=== PATIENT | female | born 1945 | race Caucasian/White ===

== ENCOUNTER → 2024-04-03 12:43 | Outpatient (REF) | payer MEDICARE, OTHER, SELFPAY | LOC: WDC 12:43 | PROVIDERS: ATTENDING PHYSICIAN Family Medicine | DX: Z12.31 Encounter for screening mammogram for malignant neoplasm of breast (principal) | CPT/HCPCS: 77063; 77067 ==

== ENCOUNTER → 2024-08-05 10:24 | Outpatient (REF) | payer MEDICARE, OTHER, SELFPAY ==
[2024-08-05 11:02] LABS: Hematocrit 42.1 % (37.0-47.0); Hemoglobin 13.7 g/dL (12.0-16.0)
[2024-08-05 11:30] LABS: Calcium 10.3 mg/dl (8.4-10.2)
[2024-08-05 11:43] LABS: Intact PTH 102.7 pg/ml (13.6-85.8)
[2024-08-05 11:57] LABS: Albumin 4.8 g/dl (3.5-5.0); Blood Urea Nitrogen 54 mg/dl (7-17); Carbon Dioxide 19 mmol/L (22-30); Chloride 105 mmol/L (98-107); Glucose 154 mg/dl (70-99); Phosphorus 3.7 mg/dl (2.5-4.5); Potassium 5.6 mmol/L (3.5-5.1); Sodium 140 mmol/L (135-145)
[2024-08-05 15:27] LABS: Urine Protein 6 mg/dl
[2024-08-05 15:32] LABS: Microalbumin, Random Urine 1.5 mg/dl (0.6-1.7); Microalbumin/creatinine Ratio 10.5 mg/g
== END ==
LOC: REG 10:24
PROVIDERS: ATTENDING PHYSICIAN Specialist; FAMILY PHYSICIAN Family Medicine
DX: E87.5 Hyperkalemia (principal); N18.32 Chronic kidney disease, stage 3b; N17.9 Acute kidney failure, unspecified
CPT/HCPCS: 36415; 80069; 82043; 82570; 83970; 84156; 85014; 85018

== ENCOUNTER 2025-03-27 16:29 | Inpatient (IN) | payer MEDICARE, OTHER, SELFPAY ==
[2025-03-26] VITALS (7 sets, daily range): BP systolic 137–191; BP diastolic 67–90; BMI 34.1; BMI 33.2
--- NOTE | 2025-03-26 16:40 | ED.GENMED ---
History of Present Illness
General
Chief Complaint: Fainting Sensation
Source: patient and family (Son)
Exam Limitations: none
Time Seen by Provider: 03/26/25 16:39
History of Present Illness
History of Present Illness:
79-year-old female was sitting watching TV. She had just eaten a red hot, although she eats these frequently, developed wooziness lightheadedness apparently went near unresponsive. Family noted she looked pale diaphoretic. Lasted 10 to 15
minutes. Still feels slightly off but very nonspecific. No chest pain no shortness of breath no unusual headache no history of same. Patient states her blood pressure during the episode was 145 and is actually increased since then.
Past History
Past History
ED Past Medical History: HTN, NIDDM (Diet-controlled) and Other (Breast cancer, arthritis)
ED Past Surgical History: Cholecystectomy, Gynecological (Hysterectomy, lumpectomy) and Orthopedic
Social History
Tobacco: Non-smoker
Alcohol: None
Drug: None
Personal:
Living: with family
Review of Systems
Review of Systems
All Other Systems: Not applicable
Respiratory: Denies trouble breathing
Cardiac: Denies chest pain or palpitations
ABD/GI: Reports no symptoms; Denies bloody stools or black stools
Phy Exam
Physical Exam
Physical Exam:
GENERAL: Alert and oriented in no apparent distress
EYE: Orbits normal.
NECK: Supple, no significant adenopathy.
ENT: Pharynx without erythema
CARDIAC: Regular rate and rhythm without any obvious murmurs.
LUNGS: Clear breath sounds,normal
ABDOMEN: Soft, without focal tenderness or distention
NEUROLOGICAL: Alert and oriented , grossly non-focal
SKIN: Warm and dry, no rash or lesion, no discoloration, skin intact.
MUSCULOSKELETAL: No edema,no deformity.Good color
PSYCH: Normal and appropriate interaction.
Course
Orders/Labs/Results
Orders:
Orders
03/26/25 16:08
Electrocardiogram (*1) Urgent
Reason for Study: Other
Other Reason for Exam: near syncope
EKG- Treatment ONCE
03/26/25 16:35
Complete Blood Count/With Diff Urgent
Comprehensive Metabolic Panel Urgent
03/26/25 16:55
CT Head W/o Iv Contrast Urgent
Comment:
Reason For Exam: Vomiting/change in mental status
Cardiac Monitoring- Treatment ONCE
IV Insert/Care/Rem.- Treatment PRN
0.9% Sodium Chloride 500 ml [Nss] 500 ml IV BOLUS
Abnormal Lab Results
03/26/25
16:35
RBC 3.98 L 10^6/uL
(4.20-5.40)
Hgb 11.8 L g/dL
(12.0-16.0)
Hct 36.3 L %
(37.0-47.0)
MCHC 32.5 L g/dL
(33.0-37.0)
BUN 45 H mg/dl
(7-17)
Creatinine 1.8 H mg/dL
(0.6-1.0)
Glucose 204 H mg/dl
(70-99)
03/26/25 16:35
03/26/25 16:35
Vital Signs
Initial and Last Documented VS:
Initial Vital Signs
Temp Pulse Resp BP Pulse Ox
98.0 F 63 16 175/86 98
03/26/25 16:05 03/26/25 16:05 03/26/25 16:05 03/26/25 16:05 03/26/25 16:05
Last Documented Vital Signs
Temp Pulse Resp BP Pulse Ox
98.0 F 57 16 137/67 96
03/26/25 16:05 03/26/25 18:37 03/26/25 16:05 03/26/25 18:37 03/26/25 18:37
MDM/Problems Addressed
Differential Diagnosis Includes:
Patient is clearly describing a syncopal episode. However I cannot totally put together that the blood pressure was reasonable. Maybe this was checked later into the episode when she was starting to resolve. No prodromal symptoms. May have been
vasovagal however no precipitating event to explain this. Workup in progress
*Radiology
Radiology exam reviewed: radiology read reviewed (Acute to subacute infarct left anterior superior cerebellar hemisphere)
*Pulse Oximetry
SaO2: 98
Oxygen Mode of Delivery: Room air
Patient hypoxic: no
*EKG
Interpreted by ED Provider?: Yes
Interpretation: abnormal
Comparison EKG: no changes
Heart Rate: 56
Rate: bradycardiac
Rhythm: sinus
[place]: normal axis
Interval: normal interval
QRS Pattern: normal QRS
Ischemia: no ischemia
*Critical Care Note
Total Time (30-74mins, 75-104mins- exclusive of procedures): Not Applicable
Data Reviewed
Review of Other/Old Records Reveals: Labs and Records
Update Note
Update Note:
Patient has been rechecked clinically stable and normal neurologic exam. However CT scan is concerning. Unusual syncope versus atypical CVA. Warrants inpatient management
ED Attending Note
-
Portions of this chart may have been created with voice recognition software.� Occasional wrong word or��sound alike� substitutions may have occurred due to the inherent limitations of voice recognition software.
Discharge Plan
Departure
Patient Disposition: Admit
Date of Disposition: 03/26/25
Time of Disposition: 19:05
Presentation/result/management discussed w/ accepting MD/DO: Hospitalist
Discharge Problem:
Syncope versus CVA
Prescriptions:
No Action
metoprolol succinate 50 MG tablet extended release 24 hr
50 mg PO DAILY
metformin 500 MG tablet
500 mg PO 1800
atorvastatin 10 MG tablet
10 mg PO HS
acetaminophen 500 MG tablet
1,000 mg PO QID Qty: 1 0RF
Rx Instructions:
standing order
hydrochlorothiazide 12.5 MG tablet
12.5 mg PO DAILY Qty: 1 0RF
Rx Instructions:
Hold if systolic blood pressure <130
calcium-vitamin D3-vitamin K 1 EACH tablet,chewable
3 ea PO DAILY
losartan 25 MG tablet
50 mg PO DAILY
Referrals:
UNKNOWN - PT DOES,NOT KNOW [Unknown Provider]
Interventions
Interventions:
*Risk Screen - Suicide Last Done: 03/26/25 16:05
*General Assessment Last Done: 03/26/25 16:05
*Neglect/Abuse Screening Last Done: 03/26/25 16:05
ED- Cardiac Assessment Last Done: 03/26/25 16:55
ED- Neurological Assessment Last Done: 03/26/25 16:55
Discharge Date and Time
Print Language: KHMER
[2025-03-26 16:46] LABS: Hematocrit 36.3 % (37.0-47.0); Hemoglobin 11.8 g/dL (12.0-16.0); Mean Corp Hgb Conc. 32.5 g/dL (33.0-37.0); Mean Corpuscular Volume 91.2 fL (81.0-99.0); Nucleated Red Blood Cells % 0 %; Platelet Count 274 10^3/uL (130-400); Red Cell Dist. Width 13.3 % (11.5-14.5)
[2025-03-26 17:06] LABS: ALT (SGPT) 10 U/L (0-35); AST (SGOT) 17 U/L (14-36); Albumin 4.0 g/dl (3.5-5.0); Alkaline Phosphatase 76 U/L (38-126); Blood Urea Nitrogen 45 mg/dl (7-17); Calcium 9.8 mg/dl (8.4-10.2); Carbon Dioxide 27 mmol/L (22-30); Chloride 104 mmol/L (98-107); Estimated Creatinine Clearance 28 ml/min; Glucose 204 mg/dl (70-99); Potassium 4.2 mmol/L (3.5-5.1); Sodium 135 mmol/L (135-145); Total Protein 6.8 g/dl (6.3-8.2); eGFR 27.96
[2025-03-26] MEDS: NSS 500 IV (17:48)
--- NOTE | 2025-03-26 19:09 | HPS.HSE ---
Family Physician
-
Family Physician: Gypsy Sue
Chief Complaint
-
Fainting spell
History of Present Illness
This is a 79-year-old female with past medical history significant for vyg-krurirw-llvmcyrlz diabetes, hypertension, hyperlipidemia, CKD stage IV presented to the emergency department with presyncopal episode.
Patient reported that she was sitting down eating some snacks when all of a sudden she felt dizzy. She had blurry vision. When she tried to stand up she noticed spinning sensation of vertigo. She was very nauseous and then vomited. She continued
to have some blurry vision for a while but that resolved. Family members reported that the patient was less responsive for a brief period of time. The recliner name but she did not respond for a little while and then she was able to respond
appropriately afterwards. Family member also reported that she had a slight facial asymmetry. This has resolved. Patient herself denies having any numbness or tingling. She denies any incontinence of the bladder or bowel. She denies any
weakness in her upper or lower extremities.
Patient denies having any palpitations chest pain. She had episode of vomiting about a week ago which resolved after taking 2 days of Prilosec. She also had 1 bout of diarrhea which is resolved. She denies any prior history of stroke.
In the emergency department patient was afebrile, blood pressure was 137/60 with a pulse of 57 and she was satting 96% on room air. ECG shows a sinus bradycardia rate of 56 without any interval abnormalities. No acute ST or T wave changes. CT of
the head shows a small focus of decreased density within the left anterior and superior cerebellar hemisphere suspicious for focal area of acute to subacute infarction.
CBC was unremarkable. Electrolytes were in the normal range. BUN/creatinine were 45 and 1.8 which is similar to prior with a glucose of 204. LFTs were unremarkable.
Medical History
Past Medical History
Past Medical History: Reports Cancer (Breast cancer status post lumpectomy, chemotherapy and radiation 2006), HTN, Hypercholesterolemia, NIDDM, Renal Failure (CKD stage IV) and Other (History of DVT status post Coumadin x 6 months, sleep apnea,
urinary stress incontinence, obesity)
Past Surgical History: Reports Cholecystectomy, Gynocological (Bilateral tubal ligation, total abdominal hysterectomy and bilateral salpingo-oophorectomy) and Orthopedic (Left femur fracture, right total knee arthroplasty, left total knee
arthroplasty)
Social History
Tobacco: Non-smoker
Alcohol: None
Drug: None
Family History
Family History: Not pertinent
Allergies / Home Medications
Allergies reflects when Allergies were last updated in [facility].
Home Medications with original date entered in [facility]
Allergy/Medication List:
Allergies
Allergy/AdvReac Type Severity Reaction Status Date / Time
docetaxel (From Taxotere) Allergy syncope Verified 03/26/25 16:07
and
redness
face to
waist and
pain in
hips
Home Medications
metFORMIN HCl ER 500 MG TAKE 1 TABLET BY MOUTH EVERY DAY WITH EVENING MEAL Orally Once a day for 90 days Active
Accu-Chek Claudia Plus - testing BS In Vitro Once a Day for 90 days Dx: E11.65 Jul, Active
Farxiga 5 MG 1 tablet Orally Once a day for 90 days Nov, Active
Tylenol 325 MG 2 tablets Orally Once a Day Active
Atorvastatin Calcium 10 MG TAKE 1 TABLET BY MOUTH EVERY DAY Orally Once a day for 90 days Active
Lancets Super Thin 28G - testing BS Once a Day for 90 days Dx: E11.65 Jul, Active
Accu-Chek Claudia Plus w/Device test sugar daily Once a Day for 90 days Dx: E1165 Jul, Active
Metoprolol Succinate ER 50 MG TAKE 1 TABLET BY MOUTH EVERY DAY for 90 Active
Olmesartan Medoxomil 40 MG 1 tablet Orally Once a day for 90 days Active
hydroCHLOROthiazide 12.5 MG TAKE 1 TABLET BY MOUTH EVERY DAY IN THE MORNING for 90 Active
Review of Systems
-
Constitutional: Reports No Symptoms
EENT: Reports No Symptoms
Respiratory: Reports No Symptoms
Cardiac: Reports No Symptoms
Abdomen/GI: Reports No Symptoms
: Reports No Symptoms
Musculoskeletal: Reports No Symptoms
Skin: Reports No Symptoms
Neurological: Reports No Symptoms
Endocrine: Reports No Symptoms
Hematologic/Lymphatic: Reports No Symptoms
Psych: Reports No Symptoms
Physical Exam
Vital Signs
Vital Signs
Temp Pulse Resp BP Pulse Ox
98.0 F 57 16 137/67 96
03/26/25 16:05 03/26/25 18:37 03/26/25 16:05 03/26/25 18:37 03/26/25 18:37
Physical Exam
General: Well Developed, Well Nourished and No Apparent Distress
HEENT: NormoCephalic, Moist mucous membranes and Atraumatic
Respiratory: Clear
Cardiac: S1/S2 and Regular Rhythm; No Murmur or Rub
GI: Soft, Non Tender, Non Distended and Normal Bowel Sounds; No Organomegaly
Rectal: Deferred by Provider
Musculoskeletal: No Clubbing, No Cyanosis and No Edema
Skin: No Rash
Neuro: AO x 3 and Nonfocal/grossly intact
Laboratory Results
-
03/26/25 16:35
03/26/25 16:35
Laboratory Results
Total Bilirubin 0.7 mg/dl (0.2-1.3) 03/26/25 16:35
AST 17 U/L (14-36) 03/26/25 16:35
ALT 10 U/L (0-35) 03/26/25 16:35
Alkaline Phosphatase 76 U/L (38-126) 03/26/25 16:35
Data Reviewed
-
CT Scan: Report Reviewed by me
Medical Tests (Nuc Med, Echo, EKG etc): Image Personally Visualized and interpreted
Lab Data: Labs Reviewed by me
Old Records: Reviewed
Impression/Plan
-
IMPRESSION:
79-year-old female with past medical history of hypertension, hyperlipidemia, diabetes not on insulin, GERD, CKD stage IV presenting to the emergency department with presyncopal episode, dizziness/vertigo and blurriness. She is hemodynamically
stable with a slight sinus bradycardia to 56 on metoprolol. Labs unremarkable. CT of the head does show a small focus of decreased density within the left anterior and superior cerebellar hemisphere, this is suspicious for a focal area of acute
to subacute infarction. Currently NIHSS equals 0. Hemodynamically stable.
PLAN:
TIA/CVA -patient with possible cerebral infarct
- Admit to telemetry observation
- Aspirin 324 x 1
- Continue aspirin 81 daily for now, plavix daily
- Increase dose of atorvastatin to 20 mg at bedtime
- Neurochecks
- MRI MRA and carotid vascular ultrasound
- IV fluids, orthostatic vital signs
- PT OT and speech
- Check cardiovascular panel
- Neurology consult
Type 2 diabetes
- Continue Farxiga, hold metformin
- Sliding scale insulin
Hypertension
- Continue olmesartan and hydrochlorothiazide for now
- Continue metoprolol
DVT prophylaxis�heparin subcu
CODE STATUS�full code
--- NOTE | 2025-03-26 19:30 | EDRN ---
Report received, introduced myself to patient and family. patient aware being admitted to the hospital, hospitalist was already in to speak with them. Patient walked into the restroom without difficulty and back in bed, provided patient with some
applesauce and crackers and a drink of Gingerale.
[2025-03-26] MEDS: LOW STRENGTH ASPIRIN 324 MG PO (19:43)
[2025-03-26 21:51] LABS: Glucose - Point of Care 145 mg/dl (70-99)
[2025-03-26] MEDS: NSS 1000 IV (22:55)
--- NOTE | 2025-03-26 23:40 | PTCARENOTE ---
Addendum entered by Chioma Melendez RN 03/26/25 23:41:
Approx Arrival Time to Unit: 2100
Original Note:
Pt arrived to unit AAOx3, oriented to unit, call ta in reach, bed locked, in lowest position. Pt NIH was 1 for right sided droop with smile. Pt was agreeable to unit regulations and cooperative with the admit process.
[2025-03-27] MEDS: HEPARIN 5000 UNITS SC ×4 (00:10→23:52)
[2025-03-27 04:01] VITALS: BP 136/66
--- NOTE | 2025-03-27 06:48 | W.PN.HOSP.TC ---
Today's Communication/Plan
-
follow up MRI results and neurology recommendations
Assessment / Plan
Assessment / Plan
Ms. Milka Mcguire is a 79 yo woman with hx HTN, HLD, NIDDM, GERD, CKD IV presents to the ER with a transient episode of dizziness/vertigo and blurry vision that is now resolved. CT head concerning for focal area acute/subacute infarct left
anterior and superior cerebellar hemisphere.
CT Head
IMPRESSION:
There is a small focus of decreased density within the left anterior and superior cerebellar hemisphere, this is suspicious for a focal area of acute to subacute infarction. As warranted, consider further evaluation with MRI of the brain.
PLAN:
TIA/CVA -patient with possible cerebral infarct
- Admitted to telemetry observation
- Aspirin 324 x 1
- Continue aspirin 81 daily for now, plavix daily
- Increase dose of atorvastatin
- Neurochecks
- MRI MRA and carotid vascular ultrasound - follow up results
- PT/OT - HH recommended
- Check cardiovascular panel
- Neurology consult
Type 2 diabetes
- Continue Farxiga, hold metformin
- Sliding scale insulin
Hypertension
- Continue olmesartan and hydrochlorothiazide
- Continue metoprolol
DVT prophylaxis�heparin subcu
CODE STATUS�full code
Anticipated Discharge: Within 24 hours
Subjective/Interval History
-
Date of Service: March 27, 2025
speaking normally
strength normal, feeling well
Objective Data
-
Labs:
Laboratory Results
03/27/25
06:00
WBC Pending
Hgb Pending
Hct Pending
Plt Count Pending
Sodium Pending
Potassium Pending
Chloride Pending
Carbon Dioxide Pending
BUN Pending
Creatinine Pending
Glucose Pending
Calcium Pending
Vital Signs:
Vital Signs
Temp Pulse Resp BP Pulse Ox
97.6 F 65 16 136/66 97
03/27/25 04:01 03/27/25 04:01 03/27/25 04:01 03/27/25 04:01 03/27/25 04:01
Review of Systems
-
History Source: Patient
All other systems: Reviewed and negative
Physical Exam
-
General: No Apparent Distress
HEENT: PERRLA
Respiratory: Clear to Auscultation; Negative Wheezes
Cardiac: Regular Rhythm and S1/S2
GI: Soft and Nontender
Musculoskeletal: No Edema
Skin: Warm and Dry; Negative Rash
Neuro: AO x 3
Psych: Calm
Data Reviewed
-
Diagnostic Radiology: Report Reviewed by me
Labs: Labs Reviewed by me
[2025-03-27 08:07] VITALS: BP 159/81
[2025-03-27 08:28] LABS: Glucose - Point of Care 110 mg/dl (70-99)
[2025-03-27 08:47] LABS: Hematocrit 36.2 % (37.0-47.0); Hemoglobin 11.5 g/dL (12.0-16.0); Mean Corp Hgb Conc. 31.8 g/dL (33.0-37.0); Mean Corpuscular Volume 95.0 fL (81.0-99.0); Platelet Count 263 10^3/uL (130-400); Red Cell Dist. Width 13.5 % (11.5-14.5)
[2025-03-27] MEDS: NOVOLOG FLEXPEN-LOW RESISTANCE SC ×2 (08:49→12:17)
[2025-03-27] MEDS: LOW STRENGTH ASPIRIN 81 MG PO (08:50)
[2025-03-27] MEDS: PROTONIX 40 MG PO (08:50)
[2025-03-27] MEDS: PLAVIX 75 MG PO (08:51)
[2025-03-27] MEDS: TOPROL XL 50 MG PO (08:51)
[2025-03-27] MEDS: ORETIC 12.5 MG PO (08:51)
[2025-03-27] MEDS: COZAAR 100 MG PO (08:51)
[2025-03-27] MEDS: FARXIGA 5 MG PO (08:52)
--- NOTE | 2025-03-27 09:07 | CON.NEURO4 ---
Addendum entered and electronically signed by Héctor Flores MD 03/27/25 20:37:
I have seen and examined the patient today along with the nurse practitioner Francisca Mcguire and I agree with her assessment and management plan. Given below is my addendum.
The patient is an 79 years old female who presented to the hospital on 03/26/2025 with complaint of dizziness, nausea and vomiting. She also complained of blurred vision and said that she developed spinning sensation which was followed by vomiting.
The MRI of the brain showed an acute ischemic infarct in the left cerebellar hemisphere. The MRI of the brain also showed small chronic infarcts in both occipital lobes.
The MRA of the brain showed severe stenosis (near occlusion) of the proximal left superior cerebellar artery.
The MRA of the neck showed less than 50% stenosis of both proximal ICAs.
She was not a candidate for TNK due to NIHSS = 0.
Neurologic Examination:
The patient is alert and oriented x 3,
Speech is clear,
The cranial nerves II to XII are grossly intact,
The motor strength is grossly 5/5 bilaterally,
The sensations are grossly intact,
The cerebellar examination shows ataxia on czlwht-tkdx-asftzv and tbql-ol-gofp test on the left side.
NIHSS = 2
ASSESSMENT AND PLAN:
The patient had an acute ischemic infarct in the left cerebellar hemisphere. The etiology appears likely to be secondary to emboli, the source of emboli is unspecified at this time. The patient will need a Holter monitor at the time of discharge.
She will also need an echocardiogram.
The MRI of the brain showed an acute ischemic infarct in the left cerebellar hemisphere. The MRI of the brain also showed small chronic infarcts in both occipital lobes.
She was not on any antiplatelets prior to admission.
On neurologic semination the patient has ataxia on wpedjt-aldn-xvrfni and ozyu-nf-pbxq test on the left side.
The MRA of the brain showed severe stenosis (near occlusion) of the proximal left superior cerebellar artery.
The MRA of the neck showed less than 50% stenosis of both proximal ICAs.
The plan is to keep the patient on aspirin 81 mg daily, Plavix 75 mg daily and atorvastatin 40 mg daily.
Will follow.
Original Note:
Consultation - Neurology 4
-
CONSULTING PHYSICIAN: Héctor Flores MD
REFERRING PHYSICIAN: Hospitalists/Dr. oLuie
DICTATED BY: JARET Aguilar
DATE/TIME OF REQUEST: 03/26/25
DATE/TIME OF CONSULTATION: 03/27/25
Reason for Consultation: Dizziness, near syncope
History of Present Illness:
This is an 79-year-old (left/right) handed female who has presented to the hospital on 03/26/25 with report of dizziness, nausea/vomiting, and blurred vision. Patient was in her usual state yesterday (03/26/25) sitting eating hot tamales at 1500
when suddenly she became light-headed and her vision was blurry. She went to stand up and developed a spinning sensation, became nauseous, and proceeded to vomit. Her family reports that she was minimally responsive/not speaking for a brief period
and they thought she had a slight facial droop, prompting them to bring her to the ER for evaluation. CT head was obtained on arrival and is suggestive of a possible left cerebellar ischemic stroke. She was not a candidate fro TNK/IAT due to NIHSS
0. She was loaded with aspirin in the ER. Today (03/27/25), she reports feeling back to her baseline. Her family reports that her speech still sounds mildly slurred compared to baseline. She denies any headache, dizziness, vision changes,
speech/swallowing difficulty, ataxia, numbness, and weakness. She was not taking any blood-thinning medications prior to arrival.
Past Medical History: HTN, HLD, NIDDM, CKD IV, DVT s/p Coumadin x6 months, breast cancer s/p lumpectomy/chemo/radiation, stress incontinence, obesity
Surgical History: Lumpectomy, ROSE [facility]IE BSO, b/l tubal ligation, cholecystectomy, left femur repair, b/l TKR
Family History: Reviewed and noncontributory.
Social History: Denies tobacco, alcohol, and illciit drug use.
Allergies: Docetaxel.
Home Medications: See below.
Review of Symptoms:
Patient denies any fever, headache, chest pain, shortness of breath, GI or symptoms.
�Per the HPI.�All systems are reviewed negative except above.
Physical Exam:
The patient is afebrile, abdomen is nondistended, breathing is unlabored, skin is warm and dry, no edema.
NIH Stroke Scale:
I performed the NIH stroke scale on the patient on 03/27/25 at 1400. The patient scored 3 points on the NIH stroke scale assessment, which were assigned as follows: See below.
Neurologic Examination:
The patient is awake, alert and oriented x 3. She is able to follow commands and answer questions appropriately. There is no aphasia. There is very mild dysarthria. On cranial nerve assessment, pupils are 3 mm bilateral, round and reactive to light
and accommodation. Visual roberson are full. Extraocular movements are intact. Facial sensations are intact and bilaterally symmetrical, there is no facial asymmetry. Hearing is intact bilaterally to normal conversation volume. Tongue palate and uvula
are midline. Sternocleidomastoid strengths are full bilaterally. Motor strengths are 5/5 bilateral upper and lower extremities on medical research [place] scale. There is no drift or involuntary movement noted. Deep tendon reflexes are 2+ bilateral
upper and lower extremities and Babinski is absent bilaterally. There was no extinction noted on double simultaneous stimulation. Coordination is very minimally ataxic by finger to nose and heel to vale on the left side.
Lab Results: See below.
Neuro Imaging:
1. CT head 03/26/25: There is a small focus of decreased density within the left anterior and superior cerebellar hemisphere, this is suspicious for a focal area of acute to subacute infarction. As warranted, consider further evaluation with MRI of
the brain.
2. MRI brain 03/27/25: 1.7 cm ACUTE ISCHEMIC INFARCT in the superomedial anterior LEFT CEREBELLAR HEMISPHERE. Small chronic transcortical infarcts in both occipital lobes. Mild white matter leukoaraiosis in the frontal lobes. Mild diffuse cerebral
and cerebellar volume loss. Severe left-sided facet joint arthrosis in the cervical spine.
3. MRA head/neck 03/27/25: SEVERE STENOSIS (near occlusion) of the PROXIMAL LEFT SUPERIOR CEREBELLAR ARTERY which demonstrates asymmetric decreased blood flow in the territory of the 1.8 cm acute ischemic infarct in the superomedial anterior left
cerebellar hemisphere. Severe calcific atherosclerotic plaque in both intracranial internal carotid arteries. 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
Differentials for the patient's presentation include:
1. Acute left cerebellar ischemic infarct in the setting of left superior cerebellar artery near occlusion; etiology of stroke is likely an embolic source vs less likely hypertension.
2. Chronic small bilateral occipital lobe ischemic infarcts.
Patient has the following risk factors for their symptoms: HTN, HLD, NIDDM, age
IV Tenecteplase/IAT candidacy: She was not a candidate fro TNK/IAT due to NIHSS 0.
Recommendations:
-Continue DAPT with aspirin 81mg and clopidogrel 75mg daily for 21 days. After 21 days, stop clopidogrel and continue aspirin 81mg daily only.
-Permissive hypertension SBP<220, DBP<120 until 1500 today, then goal normotension.
-TTE pending.
-Recommend 30 day Holter monitor, if this is normal would proceed with ILR placement.
-LDL goal <70. LDL is 69. Okay to continue home atorvastatin 10mg daily as LDL is at goal.
-Goal normoglycemia, hbA1c is 7.2.
-NIHSS and neurological checks per unit guidelines.
-Provide patient with a stroke education packet.
-PT/OT/ST evaluations.
-Vitamin B12 level is low at 305, goal is >400. Initiate cyanocobalamin 1000mcg PO daily
-DVT prophylaxis.
Discussed patient care with: Dr. Flores, the patient
Vital Signs and Labs
-
Vital Signs and Labs:
Vital Signs
Temp Pulse Resp BP Pulse Ox
97.6 F 61 12 159/81 97
03/27/25 08:07 03/27/25 08:51 03/27/25 08:07 03/27/25 08:51 03/27/25 08:07
Lab Results
03/27/25 07:57
Sodium 135 mmol/L (135-145) 03/26/25 16:35
Potassium 4.2 mmol/L (3.5-5.1) 03/26/25 16:35
BUN 45 mg/dl (7-17) H 03/26/25 16:35
Glucose 204 mg/dl (70-99) H 03/26/25 16:35
Calcium 9.8 mg/dl (8.4-10.2) 03/26/25 16:35
Medications
-
Active Medications
Generic Name Dose Route Start Last Admin
Trade Name Freq PRN Reason Stop Dose Admin
Acetaminophen 650 mg 03/26/25 21:26
Acetaminophen 650 Mg Rectal Suppository RECTAL 04/23/25 21:25
Q4HPRN PRN
MEYERS, mild pain, or temp >100.4F
Aspirin 81 mg 03/27/25 08:00 03/27/25 08:50
Aspirin 81 Mg Chewable Tablet PO 04/24/25 07:59 81 mg
DAILY TOM Administration
Atorvastatin Calcium 20 mg 03/27/25 18:00
Atorvastatin (Lipitor) 20 Mg Tablet PO 04/24/25 17:59
QPM TOM
Clopidogrel Bisulfate 75 mg 03/27/25 08:00 03/27/25 08:51
Clopidogrel 75 Mg Tablet PO 04/24/25 07:59 75 mg
DAILY TOM Administration
Dapagliflozin 5 mg 03/27/25 08:00 03/27/25 08:52
Dapagliflozin (Farxiga) 5 Mg Tablet PO 04/24/25 07:59 5 mg
DAILY TOM Administration
Dextrose 12.5 grams 03/26/25 21:26
Dextrose 50% (0.5 Grams/Ml) 50 Ml Syringe IV 04/23/25 21:25
[id number] PRN
hypoglycemia
Protocol
Glucagon 1 mg 03/26/25 21:26
Glucagon 1 Mg Vial IM 04/23/25 21:25
PRN PRN
hypoglycemia
Protocol
Heparin Sodium 5,000 units 03/27/25 00:00 03/27/25 08:51
Heparin 5,000 Units/Ml 1 Ml Vial SC 04/24/25 00:00 5,000 units
Q8 TOM Administration
Hydrochlorothiazide 12.5 mg 03/27/25 08:00 03/27/25 08:51
Hydrochlorothiazide 12.5 Mg Tablet PO 04/24/25 07:59 12.5 mg
DAILY TOM Administration
Sodium Chloride 1,000 mls @ 80 mls/hr 03/26/25 21:26 03/26/25 22:55
Nss IV 03/27/25 09:55 1,000 mls
.[id number] TOM Administration
Insulin Aspart 0 units 03/27/25 07:30 03/27/25 08:49
Insulin Aspart Low Resistance 300 Units/3 Ml Pen.Injctr SC 04/24/25 07:29 Not Given
AC TOM
Protocol
Losartan Potassium 100 mg 03/27/25 08:00 03/27/25 08:51
Losartan 100 Mg Tablet PO 04/24/25 07:59 100 mg
DAILY TOM Administration
Metoprolol Succinate 50 mg 03/27/25 08:00 03/27/25 08:51
Metoprolol 50 Mg Extended Release Tablet PO 04/24/25 07:59 50 mg
DAILY TOM Administration
Pantoprazole Sodium 40 mg 03/27/25 08:00 03/27/25 08:50
Pantoprazole 40 Mg Delayed Release Tablet PO 04/24/25 07:59 40 mg
DAILY TOM Administration
Sodium Chloride 0 flush 03/26/25 22:00
Sodium Chloride 0.9% (Flush) Syringe IV 04/23/25 21:59
PER PROTOCOL TOM
Home Medications
�Medication �Instructions �Recorded
metoprolol succinate 50 mg 50 mg PO DAILY Heart 06/01/15
tablet,extended release 24 hr Disease/Condition
atorvastatin 10 mg tablet 10 mg PO HS High Cholesterol 06/12/19
acetaminophen 500 mg tablet 1,000 mg PO DAILY MILD PAIN 03/26/25
calcium carbonate 500 mg PO DAILY Supplement 03/26/25
dapagliflozin propanediol 5 mg 5 mg PO DAILY Diabetes 03/26/25
tablet (Farxiga)
hydrochlorothiazide 12.5 mg tablet 12.5 mg PO DAILY Fluid 03/26/25
Retention/Swelling
losartan 50 mg tablet 50 mg PO BID Blood Pressure 03/26/25
metformin 500 mg tablet,extended 500 mg PO QPM Diabetes 03/26/25
release 24 hr
olmesartan 40 mg tablet (Benicar) 40 mg PO DAILY Heart 03/26/25
Disease/Condition
omeprazole 20 mg tablet,delayed 20 mg PO DAILY Gastrointestinal 03/26/25
release Issue
NIH Stroke Score
Subsequent NIH Scale
Date of Subsequent NIH Scale: 03/27/25
Time of Subsequent NIH Scale: 14:00
NIH Stroke Score
Level of Consciousness: 0 - Alert
LOC Questions: 0-Answers both correctly
LOC Commands: 0-Performs both correctly
Best Horizontal Gaze: 0-Normal
Visual [place]: 0=Normal, no visual loss
Facial Palsy: 0=Normal, symmetrical
Motor - Right Arm: 0=No drift 10 seconds
Motor - Left Arm: 0=No drift 10 seconds
Motor - Right Le-No drift 5 seconds
Motor - Left Le-No drift 5 seconds
Limb Ataxia: 2-Present in two limbs
Sensation: 0-Normal
Best Language: 0-No aphasia
Dysarthria: 1-Mild slurring
Extinction and Inattention: 0-No abnormality
NIH Total Score:: 3
Modified Desha (mRS) Score
Modified Hernan Scale (mRS): No significant disability. Able to carry out usual activities.
Score: 1
Alteplase Contraindication
Inclusion and Exclusion criteria reviewed: Yes
IAT Contraindications: NIHSS < 6 and Imaging doesn't show large vessel occlusion as cause of stroke
[2025-03-27 09:21] LABS: Blood Urea Nitrogen 34 mg/dl (7-17); Calcium 9.5 mg/dl (8.4-10.2); Carbon Dioxide 22 mmol/L (22-30); Chloride 108 mmol/L (98-107); Estimated Creatinine Clearance 35 ml/min; Glucose 118 mg/dl (70-99); HDL Cholesterol 41 mg/dl; LDL Cholesterol, Calculated 69 mg/dl; Potassium 4.0 mmol/L (3.5-5.1); Sodium 136 mmol/L (135-145); Very Low Density Lipoprotein 41 mg/dl (0-30); eGFR 37.80
[2025-03-27 10:06] LABS: Glycohemoglobin (HgbA1c) 7.2 % (4.0-5.9)
[2025-03-27 11:05] LABS: Ferritin 162.0 ng/ml (11.1-264.0)
--- NOTE | 2025-03-27 11:05 | PTOTSP ---
Speech Therapy Evaluation:
Pt presents w/ acute (TIA/CVA symptoms, 03/[address] indicating cerebellar infarcts) and chronic (HODA) risk factors for dysphagia. However, no overt s/sx of aspiration, no reports of difficulty w/ P.O. intake, WBC WNL, and pt is on room air. It is
recommended that pt is placed on Regulars, Thins diet w/ ST to monitor for diet-level tolerance and determine if further instrumental swallow study warranted to objectively rule-out aspiration.
Pt reports she drives, is responsible for finances/meals/medications, and is caregiver for at baseline. [place] Cognitive Assessment Version 8.2 (MOCA) administered to further assess cognitive domains. Pt's score of 19/30 indicates a mild
cognitive impairment, with noted deficits in attention and delayed recall. Pt reports cognition is at baseline. It is recommended that ST follows for further cognitive-linguistic assessment/treatment at acute and next level of care.
Recommendations:
1. Regulars, Thins
2. Medications as best tolerated
3. Partial supervision/assistance w/ meals
4. Strategies: Single sips/small bites, alternating sips and bites
5. F/U w/ ST to observe diet level tolerance, determine if instrumental swallow study warranted, and further treat/assess cognition/language at acute and next level of care.
[2025-03-27 11:37] LABS: Folate 6.3 ng/ml (2.76-20); Vitamin B12 305 pg/ml (239-931)
--- NOTE | 2025-03-27 11:46 | PTOTSP ---
Speech Therapy Evaluation:
Pt presents w/ acute (TIA/CVA symptoms, 03/[address] indicating cerebellar infarcts) and chronic (HODA) risk factors for dysphagia. However, no overt s/sx of aspiration, no reports of difficulty w/ P.O. intake, WBC WNL, and pt is on room air. It is
recommended that pt is placed on Regulars, Thins diet w/ ST to monitor for diet-level tolerance and determine if further instrumental swallow study warranted to objectively rule-out aspiration.
Pt reports she drives, is responsible for finances/meals/medications, and is caregiver for at baseline. [place] Cognitive Assessment Version 8.2 (MOCA) administered to further assess cognitive domains. Pt's score of 20/30 concerning for a
moderate cognitive impairment, with noted deficits in attention and delayed recall. Pt reports cognition is at baseline. It is recommended that ST follows for further cognitive-linguistic assessment/treatment at acute and next level of care.
Recommendations:
1. Regulars, Thins
2. Medications as best tolerated
3. Partial supervision/assistance w/ meals
4. Strategies: Single sips/small bites, alternating sips and bites
5. F/U w/ ST to observe diet level tolerance, determine if instrumental swallow study warranted, and further treat/assess cognition/language at acute and next level of care.
[2025-03-27 11:59] VITALS: BP 154/70
[2025-03-27 12:13] LABS: Glucose - Point of Care 114 mg/dl (70-99)
[2025-03-27] MEDS: VITAMIN B-12 1000 MCG PO (12:38)
[2025-03-27 15:30] VITALS: BP 144/70
[2025-03-27 16:22] LABS: Glucose - Point of Care 184 mg/dl (70-99)
--- NOTE | 2025-03-27 16:24 | CM ---
Patient seen bedside w/ family, initial assessment completed. Patient is a 79-year-old female with past medical history significant for mxj-icaxwdf-cepfacwtu diabetes, hypertension, hyperlipidemia, CKD stage IV presented to the emergency department
with presyncopal episode.
Patient resides in an in law suite w/ spouse attached to son's home, no steps. Patient was prev independent w/ ambulation, patient has cane that she was not using, however, family stated she will be using it moving forward. Patient is independent w/
ADLs and personal care. Patient has additional DME in the home for spouse who has dementia. Denies SNF/HC hx. Spouse currently active w/ [facility], patient would like a referral to [facility] for herself if home care is needed.
PCP: Gypsy Sue
Pharmacy: [facility]
Patient admitted obs services. SHEPHERD form verbally reviewed, copy provided, copy on chart
Therapy recommending home PT, speech recommending skilled services
Plan: Home w/ [facility]
[2025-03-27] MEDS: NOVOLOG FLEXPEN-LOW RESISTANCE 1 UNITS SC (17:18)
[2025-03-27] MEDS: LIPITOR 20 MG PO (17:19)
[2025-03-27 19:00] VITALS: BP 150/75; BP 159/66; BP 168/69; PULSE 65; PULSE 67; PULSE 74
[2025-03-27 21:01] LABS: Glucose - Point of Care 181 mg/dl (70-99)
[2025-03-27 23:00] VITALS: BP 144/77
[2025-03-28 03:00] VITALS: BP 150/74
--- NOTE | 2025-03-28 06:08 | W.PN.HOSP.TC ---
Addendum entered and electronically signed by Sarahi Silverman MD 03/28/25 16:41:
Correction, ok to continue with Farxiga for chronic kidney disease.
Original Note:
Today's Communication/Plan
-
Discharge
Assessment / Plan
Assessment / Plan
Physical exam
General: No Apparent Distress, appears comfortable at this time
HEENT: PERRLA, no facial droop
Respiratory: Clear to Auscultation; Negative Wheezes
Cardiac: Regular Rhythm and S1/S2
GI: Soft and Nontender
Musculoskeletal: No Edema
Skin: Warm and Dry; Negative Rash
Neuro: AO x 3, conversant coherent
Psych: Calm
Ms. Milka Mcguire is a 79 yo woman with hx HTN, HLD, NIDDM, GERD, CKD IV presents to the ER with a transient episode of dizziness/vertigo and blurry vision that is now resolved. CT head concerning for focal area acute/subacute infarct left
anterior and superior cerebellar hemisphere.
CT Head
IMPRESSION:
There is a small focus of decreased density within the left anterior and superior cerebellar hemisphere, this is suspicious for a focal area of acute to subacute infarction. As warranted, consider further evaluation with MRI of the brain.
PLAN:
TIA/CVA -patient with possible cerebral infarct
- Admitted to telemetry observation
- DAPT ASA Plavix 21 days then asa alone
- cardiovascular panel appreciated
- Increase dose of atorvastatin
- Neurochecks
- MRI MRA and carotid vascular ultrasound results appreciated
- PT/OT - HH recommended
- Neurology consult appreciated stroke suspected embolic, patient fitted with Holter Monitor
- ECHO appreciated EF 62%, mild moderate mitral valve regurgitation, moderate tricuspid regurgitation.
Low Normal B12 level
-B12 supplementation as per Neurology
Type 2 diabetes
- A1c 7.2
- Sliding scale insulin
- Ok to resume home Metformin on discharge
- Farxiga placed on hold due to eGFR<45
Chronic Kidney Disease Stage III to IV
Cr baseline appears to be 1.4 to 1.5
renally dose medications as necessary
Hypertension
- Continue Losartan and hydrochlorothiazide
- Continue metoprolol
DVT prophylaxis�heparin subcu
CODE STATUS�full code
Medically stable for discharge with home services and outpatient follow up recommendations.
Discussed with patient, patient's son Tanner and daughter Elke.
Total Time Preparing Discharge __40 minutes including examination of the patient, summary of the hospital stay, instructions for continuing care to all relevant caregivers; and preparation of discharge records, prescriptions, and referral
forms if necessary.
Anticipated Discharge: Today
Subjective/Interval History
-
Date of Service: March 28, 2025
No acute distress, overall reports feeling well, denies new acute issues at this time. Eager to go home.
Objective Data
-
Labs:
Laboratory Results
03/28/25
06:00
Sodium Pending
Potassium Pending
Chloride Pending
Carbon Dioxide Pending
BUN Pending
Creatinine Pending
Glucose Pending
Calcium Pending
Vital Signs:
Vital Signs
Temp Pulse Resp BP Pulse Ox
97.7 F 63 16 150/74 98
03/28/25 03:00 03/28/25 03:00 03/28/25 03:00 03/28/25 03:00 03/28/25 03:00
I&O
03/26/25 03/27/25 03/28/25
06:59 06:59 06:59
Intake Total 480 / 480
Balance 480 / 480
[2025-03-28 07:38] LABS: Glucose - Point of Care 124 mg/dl (70-99)
[2025-03-28 07:55] VITALS: BP 143/69
[2025-03-28] MEDS: NOVOLOG FLEXPEN-LOW RESISTANCE SC ×2 (08:12→16:06)
[2025-03-28] MEDS: PLAVIX 75 MG PO (08:13)
[2025-03-28] MEDS: LOW STRENGTH ASPIRIN 81 MG PO (08:13)
[2025-03-28] MEDS: TOPROL XL 50 MG PO (08:13)
[2025-03-28] MEDS: FARXIGA 5 MG PO (08:14)
[2025-03-28] MEDS: VITAMIN B-12 1000 MCG PO (08:14)
[2025-03-28] MEDS: PROTONIX 40 MG PO (08:14)
[2025-03-28] MEDS: ORETIC 12.5 MG PO (08:14)
[2025-03-28] MEDS: HEPARIN 5000 UNITS SC ×2 (08:15→16:06)
[2025-03-28] MEDS: COZAAR 100 MG PO (08:15)
[2025-03-28 09:36] LABS: Blood Urea Nitrogen 34 mg/dl (7-17); Calcium 9.4 mg/dl (8.4-10.2); Carbon Dioxide 24 mmol/L (22-30); Chloride 106 mmol/L (98-107); Estimated Creatinine Clearance 33 ml/min; Glucose 126 mg/dl (70-99); Potassium 4.5 mmol/L (3.5-5.1); Sodium 138 mmol/L (135-145); eGFR 34.79
[2025-03-28 11:00] VITALS: BP 154/91; BP 158/83; BP 161/84; PULSE 56; PULSE 59; PULSE 62
[2025-03-28 11:46] LABS: Glucose - Point of Care 204 mg/dl (70-99)
[2025-03-28] MEDS: NOVOLOG FLEXPEN-LOW RESISTANCE 2 UNITS SC (12:01)
[2025-03-28 15:00] VITALS: BP 137/61
[2025-03-28 16:04] LABS: Glucose - Point of Care 139 mg/dl (70-99)
--- NOTE | 2025-03-28 16:26 | CM ---
Per hospitalist, patient will d/c home today
Met w/ patient and daughter bedside, aware of d/c
IMM verbally reviewed, copy provided, copy on chart
[facility] to [facility]

Plan: D/c home w/ [facility]
--- NOTE | 2025-03-29 02:48 | W.DCSUMMARY ---
Discharge Summary
Discharge Data
Date of Admission: 03/27/25
Date of Discharge: 03/29/25
-
Pending Results: No
Discharge Plan
-
Patient Disposition: Home with Home Care
Discharge Diagnosis/Procedures: left cerebellar ischemic stroke
Condition: Fair
Diet: Diabetic, Carb Controlled
Activity: As tolerated
Driving Restrictions: Not until seen by your Dr
Bathing Restrictions: None
Blood Work: repeat Vitamin B12 and lipid panel with primary care provider in 1 month of discharge.
Other Services: VN, PT, OT and ST
Referrals:
Alvin Wong MD [Active, Neurology] - in one month
Gypsy Sue MD [Family Provider, Family Practice] - in less than 1 week
Additional Discharge Medication Instructions: Take aspirin 81mg daily indefinitely
Take Plavix 75mg daily through Mar 17, 2025 then stop.
You are set up for heart monitoring. If the heart monitor shows atrial fibrillation, your above medications will be changed.
Increase Lipitor from 10mg in evenings to 40mgs in evenings
You are started on Vitamin B12 repletion for borderline low B12 levels.
Ok to resume your Losartan tomorrow morning 03/29/25. *Do not take Losartan this evening, you received 100mg this morning.
Olmesartan (Benicar) discontinued as you are already on Losartan (you should not be on both medications)
Prescriptions:
New
aspirin 81 mg Tablet,Chewable
81 mg PO DAILY Qty: 90 0RF
clopidogrel 75 mg Tablet
75 mg PO DAILY Qty: 20 0RF
cyanocobalamin (vitamin B-12) 500 mcg Tablet
1,000 mcg PO DAILY Qty: 30 0RF
atorvastatin [Lipitor] 40 mg tablet
40 mg PO QPM Qty: 30 0RF
Continued
metoprolol succinate 50 MG tablet extended release 24 hr
50 mg PO DAILY
acetaminophen 500 MG tablet
1,000 mg PO DAILY
hydrochlorothiazide 12.5 MG tablet
12.5 mg PO DAILY
calcium carbonate 500 mg calcium (1,250 mg) Tablet
500 mg PO DAILY
metformin 500 mg Tablet Extended Release 24 Hr
500 mg PO QPM
omeprazole 20 mg Tablet,Delayed Release (Dr/Ec)
20 mg PO DAILY
dapagliflozin propanediol [Farxiga] 5 mg Tablet
5 mg PO DAILY
Held
losartan 50 mg Tablet
50 mg PO BID
Hold Instructions: Resume on 03/28/25.
Discontinued
atorvastatin 10 MG tablet
10 mg PO HS
olmesartan [Benicar] 40 mg Tablet
40 mg PO DAILY
Discharge Orders:
Discharge Patient (As Directed); Ordered 03/28/25
Ordered By: Sarahi Silverman
Discharge Date and Time
Discharge Date/Time: 03/28/25 17:43
Print Language: YORUBA
== END 2025-03-28 17:43 | disposition home health service (06) | DRG 65 ==
LOC: 4 WEST ACU 16:29
PROVIDERS: Student in an Organized Health Care Education/Training Program; ADMITTING PHYSICIAN Internal Medicine; ATTENDING PHYSICIAN Internal Medicine; CONSULT PHYSICIAN Psychiatry & Neurology Neurology; EMERGENCY PHYSICIAN Emergency Medicine; FAMILY PHYSICIAN Family Medicine
DX: I63.542 Cerebral infarction due to unspecified occlusion or stenosis of left cerebellar artery (principal); N18.4 Chronic kidney disease, stage 4 (severe); Z79.84 Long term (current) use of oral hypoglycemic drugs; Z79.899 Other long term (current) drug therapy; E78.00 Pure hypercholesterolemia, unspecified; E11.22 Type 2 diabetes mellitus with diabetic chronic kidney disease; I12.9 Hypertensive chronic kidney disease with stage 1 through stage 4 chronic kidney disease, or unspecified chronic kidney disease; Z90.49 Acquired absence of other specified parts of digestive tract; Z90.710 Acquired absence of both cervix and uterus; Z79.82 Long term (current) use of aspirin; Z92.21 Personal history of antineoplastic chemotherapy; Z85.3 Personal history of malignant neoplasm of breast; Z86.718 Personal history of other venous thrombosis and embolism; Z92.3 Personal history of irradiation; Z96.653 Presence of artificial knee joint, bilateral; E66.9 Obesity, unspecified; Z68.33 Body mass index [BMI] 33.0-33.9, adult; R29.700 NIHSS score 0; G47.30 Sleep apnea, unspecified; N39.3 Stress incontinence (female) (male)
CPT/HCPCS: 70450; 70544; 70547; 70551; 80048; 80053; 80061; 82607; 82728; 82746; 82962; 83036; 84443; 85025; 85027; 92507; 92523; 92610; 93005; 93306; 96361; 96374; 97162; 97166; 99285